=== PATIENT | male | born 1980 | race Caucasian/White ===

== ENCOUNTER 2023-01-15 10:04 | Emergency (ER) | payer BC, OTHER ==
[~2023-01-15] VITALS: Ht 175.3 cm; Wt 74.8 kg
[~2023-01-15 10:04] MED LIST: ACET325T38 PO; OMEP40CA6 PO; PANT40TA2 PO; SUCR1TAB PO; SUCR1TAB36 PO; TADA5TAB2 PO
[2023-01-15 10:07] VITALS: BP 116/72
--- NOTE | 2023-01-15 10:14 | ED General ---
General Stated Complaint: HEAT EXHAUSTION Source of Information: Patient, EMS Exam Limitations: No Limitations History of Present Illness Date Seen by Provider: Jan 15, 2023 Time Seen by Provider: 10:03 Initial Comments 42-year-old male with history of cirrhosis presents ambulance for near syncope. He states he was talking with his hvac service tech and felt as though his get a pass out. He had palpitations but denies any chest pain or shortness of breath. No nausea or vomiting. Sensation lasted about 15 minutes. He states he has been in the heat for the last couple days and feels like he might be de hydrated. He feels back to normal at this time. He was given 500 cc of normal saline prior to arrival by EMS. All other systems reviewed and negative except documented per HPI. Voice recognition software was used to help create this chart Allergies and Home Medications Allergies Coded Allergies: sucralfate (Verified Allergy, Unknown, 01/15/23) trazodone (Verified Allergy, Unknown, 01/15/23) Patient Home Medication List Home Medication List Reviewed: Yes Acetaminophen (Tylenol) 325 Mg Tablet, 325 MG PO PRN, (Reported) Entered as Reported by: CANDELARIA GUTIERREZ on 03/07/15918 Omeprazole (Omeprazole) 40 Mg Capsule.dr, 40 MG PO DAILY, (Reported) Entered as Reported by: CANDELARIA GUTIERREZ on 03/07/15918 Pantoprazole Sodium (Protonix) 40 Mg Tablet.dr, 40 MG PO DAILY Prescribed by: SOL CHOI on 03/07/15 114 Sucralfate (Sucralfate) 1 Gm Tablet, 1 GM PO DAILY, (Reported) Entered as Reported by: CANDELARIA GUTIERREZ on 03/07/15918 Sucralfate (Carafate) 1 Gm Tablet, 1 GM PO QID Prescribed by: SOL CHOI on 03/07/15 114 Tadalafil (Cialis) 5 Mg Tablet, 5 MG PO DAILY, (Reported) Entered as Reported by: CANDELARIA GUTIERREZ on 03/07/15916 Review of Systems Review of Systems Constitutional: see HPI Past [id number] Hx Patient Social History Tobacco Use?: Yes Use of E-Cig and/or Vaping dev: No Substance use?: No Alcohol Use?: Yes Physical Exam Vital Signs Capillary Refill : Height, Weight, BMI Height: 5'9.00" Weight: 155lbs. oz. [id number]; BMI Method: General Appearance: No Apparent Distress, WD/WN Eyes: Bilateral Eye Normal Inspection, Bilateral Eye PERRL, Bilateral Eye EOMI HEENT: PERRL/EOMI, TMs Normal, Normal ENT Inspection, Pharynx Normal Neck: Full Range of Motion, Normal Inspection, Non Tender, Supple Respiratory: Chest Non Tender, Lungs Clear, Normal Breath Sounds, No Accessory Muscle Use, No Respiratory Distress Cardiovascular: Regular Rate, Rhythm, No Murmur, Normal Peripheral Pulses Gastrointestinal: Normal Bowel Sounds, No Organomegaly, Non Tender, Soft Back: Normal Inspection Extremity: Normal Capillary Refill, Normal Inspection, No Pedal Edema Neurologic/Psychiatric: Alert, Oriented x3, No Motor/Sensory Deficits, Normal Mood/Affect, 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 Normal intervals. Normal axis. No ST or T wave abnormalities. No ectopy. No STEMI. Departure Communication (Admissions) Patient is hemodynamically stable with benign exam. Initial differential diagnosis includes dehydration, electrolyte abnormality, heart dysrhythmia, hypo or hyperglycemia, anemia. EKG is normal on my independent review no evidence for ischemia or dysrhythmia. Basic metabolic panel is unremarkable. CBC shows no evidence for anemia. I have independently reviewed the EKG and all lab findings. He has a benign exam with normal vital signs. He is discharged home in stable condition. Impression Primary Impression: Near syncope Disposition: 01 HOME, SELF-CARE Condition: Stable Departure-Patient Inst. Referrals: NO,LOCAL PHYSICIAN (PCP/Family) Primary Care Physician Patient Instructions: Near Fainting Add. Discharge Instructions: You were seen in the emergency department today for feeling that you may pass out. No emergent medical conditions identified for your symptoms. Your vital signs are normal and your exam is reassuring. Your labs are unremarkable. Please increase your fluids at home, rest and follow-up with your primary doctor for any nonemergent needs. Return to the emergency department for any severe concerns. ZACHARY HARMON DO Jan 15, 2023 10:14
[2023-01-15 10:53] LABS: HEMATOCRIT 45 % (40-54); HEMOGLOBIN 15.1 g/dL (13.3-17.7); MEAN CORPUSCULAR HEMOGLOBIN 32 pg (25-34); MEAN CORPUSCULAR VOLUME 94 fL (80-99); WHITE BLOOD COUNT 6.4 10^3/uL (4.3-11.0)
[2023-01-15 10:54] LABS: BASOPHILS % (AUTO) 1 % (0-10); EOSINOPHILS # (AUTO) 0.1 10^3/uL (0.0-0.3); EOSINOPHILS % (AUTO) 1 % (0-10); LYMPHOCYTES # (AUTO) 1.3 X 10^3 (1.0-4.0); LYMPHOCYTES % (AUTO) 21 % (12-44); MEAN CORPUSCULAR HGB CONC 32 g/dL (32-36); MEAN PLATELET VOLUME 9.2 fL (9.0-12.2); MONOCYTES # (AUTO) 0.3 X 10^3 (0.0-1.0); MONOCYTES % (AUTO) 5 % (0-12); NEUTROPHILS # (AUTO) 4.6 X 10^3 (1.8-7.8); NEUTROPHILS % (AUTO) 72 % (42-75); PLATELET COUNT 240 10^3/uL (130-400)
[2023-01-15 11:02] LABS: POTASSIUM 3.9 MMOL/L (3.6-5.0)
[2023-01-15 11:03] LABS: CALCIUM 8.9 MG/DL (8.5-10.1); CREATININE SERUM 1.02 MG/DL (0.60-1.30)
[2023-01-15 11:09] LABS: BILIRUBIN,URINE NEGATIVE (NEGATIVE); CLARITY,URINE CLEAR; COLOR,URINE YELLOW; GLUCOSE, URINE (UA) NEGATIVE (NEGATIVE); KETONES,URINE NEGATIVE (NEGATIVE); LEUKOCYTE ESTERASE ,URINE NEGATIVE (NEGATIVE); NITRITE,URINE NEGATIVE (NEGATIVE); PROTEIN,URINE NEGATIVE (NEGATIVE)
[2023-01-15 11:16] LABS: BACTERIA,URINE NEGATIVE /HPF; WBC,URINE RARE /HPF
== END 2023-01-15 11:30 | disposition home or self-care (01) ==
LOC: EDUNIT# 10:04 → ER FS 10:06
DX: R55 Syncope and collapse (principal); Z72.0 Tobacco use
CPT/HCPCS: 36415; 80048; 81000; 85025; 93005